=== PATIENT | female | born 1970 | race Caucasian/White ===

== ENCOUNTER 2017-08-03 11:34 | Emergency (ER) | payer BC ==
[~2017-08-03] VITALS: Ht 160 cm; Wt 63.5 kg
[2017-08-03 11:34] VITALS: BP_SYST 138
--- NOTE | 2017-08-03 11:34 | NUR ---
BROUGHT BACK TO BED #6 AND TRIAGED, REPORT GIVEN TO SHANICE
--- NOTE | 2017-08-03 11:38 | NUR ---
Dr Hooks at bedside examining patient
--- NOTE | 2017-08-03 11:38 | NUR ---
Patient to ER bed 06 to gown for evaluation. Side rails up.
--- NOTE | 2017-08-03 11:40 | NUR ---
Pt brought by self,pt presents to ER with sore throat and cough, afebrile, skin pink and warm, cap refill <3, VSS.
--- NOTE | 2017-08-03 11:59 | NUR ---
Patient given written and verbal discharge instructions and verbalizes understanding. ER MD discussed with patient the results and treatment provided. Patient in stable condition. ID arm band removed. No prescriptions given. Patient educated on pain management and to follow up with PMD. Pain Scale 0/10 . Opportunity for questions provided and answered.
[2017-08-03 12:00] VITALS: BP_SYST 136
== END 2017-08-03 12:00 | disposition home or self-care (01) ==
LOC: SED 11:34
DX: J06.9 Acute upper respiratory infection, unspecified (principal); R03.0 Elevated blood-pressure reading, without diagnosis of hypertension
CPT/HCPCS: 99281

== ENCOUNTER 2017-08-17 14:12 | Emergency (ER) | payer BC ==
[~2017-08-17] VITALS: Ht 154.9 cm; Wt 56.7 kg
[2017-08-17 14:12] VITALS: BP_SYST 150
[2017-08-17] MEDS ORDERED: IPRATROPIUM/ALBUTEROL SULFATE 3 ML AMPUL.NEB INH ONE (14:45)
[2017-08-17 15:21] LABS: BASOPHILS # (AUTO) 0.1 K/uL (0.0-0.2); BASOPHILS % (AUTO) 1.5 % (0.0-2.0); HEMATOCRIT 41.6 % (36-48); HEMOGLOBIN 13.8 g/dL (12.0-16.0); LYMPHOCYTES # (AUTO) 0.7 K/uL (1.0-5.5); LYMPHOCYTES % (AUTO) 7.8 % (20.5-51.5); MEAN CORPUSCULAR HEMOGLOBIN 29 pg (27-31); MEAN CORPUSCULAR HGB CONC 33 % (32-36); MEAN CORPUSCULAR VOLUME 87 fL (79.0-98.0); MONOCYTES # (AUTO) 0.2 K/uL (0.0-1.0); MONOCYTES % (AUTO) 1.8 % (1.7-9.3); NEUTROPHILS # (AUTO) 7.5 K/uL (1.8-7.7); NEUTROPHILS % (AUTO) 88.9 % (40.0-70.0); PLATELET COUNT (AUTO) 370 K/uL (130-430); RED BLOOD CELL COUNT(AUTO) 4.77 MIL/uL (4.2-6.2); RED CELL DISTRIBUTION WIDTH 12.5 % (9.0-15.0); WHITE BLOOD COUNT (AUTO) 8.5 K/uL (4.8-10.8)
[2017-08-17 15:36] LABS: CALCIUM 9.4 mg/dL (8.4-11.0); CREATININE 0.6 mg/dL (0.55-1.30); POTASSIUM 3.5 mmol/L (3.5-5.1)
[2017-08-17 15:41] LABS: ALBUMIN 4.2 g/dL (3.4-4.8); TOTAL BILIRUBIN 0.5 mg/dL (0.0-1.0)
[2017-08-17] MEDS ORDERED: DEXAMETHASONE SOD PHOSPHATE 10 MG/ML VIAL IM ONE (16:15)
[2017-08-17] MEDS ORDERED: HYDROcodone/ACETAMIN 5-325 MG TAB (NORCO/ VICODIN) PO ONE (16:45)
[2017-08-17 17:12] VITALS: BP_SYST 123
== END 2017-08-17 17:12 | disposition home or self-care (01) ==
LOC: SED 14:12
DX: J45.909 Unspecified asthma, uncomplicated (principal); R03.0 Elevated blood-pressure reading, without diagnosis of hypertension
CPT/HCPCS: 36415; 71045; 80053; 84484; 85025; 85379; 94640; 96372; 99285; J1100; 93005

== ENCOUNTER 2022-08-27 17:41 | Inpatient (IN) | payer BC ==
[~2022-08-27] VITALS: Ht 154.9 cm; Wt 60.8 kg
[2022-08-27 17:55] VITALS: BP_SYST 173
[2022-08-27 18:58] LABS: BASOPHILS % (AUTO) 0.3 % (0.0-2.0); EOSINOPHILS % (AUTO) 0.3 % (0.0-4.0); HEMATOCRIT 43.7 % (36-48); HEMOGLOBIN 14.8 g/dL (12.0-16.0); LYMPHOCYTES # (AUTO) 1.4 K/uL (1.0-5.5); LYMPHOCYTES % (AUTO) 18.3 % (20.5-51.5); MEAN CORPUSCULAR HEMOGLOBIN 30 pg (27-31); MEAN CORPUSCULAR HGB CONC 34 % (32-36); MEAN CORPUSCULAR VOLUME 87 fL (79.0-98.0); MONOCYTES # (AUTO) 0.3 K/uL (0.0-1.0); MONOCYTES % (AUTO) 4.4 % (1.7-9.3); NEUTROPHILS % (AUTO) 76.7 % (40.0-70.0); PLATELET COUNT (AUTO) 261 K/uL (130-430); RED CELL DISTRIBUTION WIDTH 12.9 % (9.0-15.0); WHITE BLOOD COUNT (AUTO) 7.9 K/uL (4.8-10.8)
[2022-08-27 19:14] LABS: ANION GAP 5 (5-15); CALCIUM 9.4 mg/dL (8.4-11.0); CHLORIDE 102 mmol/L (98-107); CREATININE 0.73 mg/dL (0.55-1.30); GLUCOSE 127 mg/dL (70-99); UREA NITROGEN, BLOOD 10 mg/dL (8-21)
[2022-08-27 19:24] LABS: ALANINE AMINOTRANSFERASE 43 U/L (12-78); ALBUMIN 4.5 g/dL (3.4-4.8); ASPARTATE AMINOTRANSFERASE 26 U/L (10-37); TOTAL BILIRUBIN 0.7 mg/dL (0.0-1.0)
[2022-08-27] MEDS ORDERED: MORPHINE 4 MG INJ. 4 MG/ML VIAL IVP ONE (19:30)
[2022-08-27] MEDS ORDERED: NITROGLYCERIN 1 INCH (GM) OINT. TP ONE (19:30)
[2022-08-27] MEDS ORDERED: ASPIRIN 325 MG TABLET PO ONE (19:30)
[2022-08-27 19:36] LABS: GFR AFRICAN AMERICAN 108 mL/min (>90)
[2022-08-27 22:37] VITALS: BP_SYST 151
[2022-08-28 08:36] VITALS: BP_SYST 130
[2022-08-28 11:22] VITALS: BP_SYST 154
[2022-08-28 16:38] VITALS: BP_SYST 149
[2022-08-28 20:00] VITALS: BP_SYST 141
[2022-08-29] VITALS (7 sets, daily range): BP systolic 102–143
[2022-08-29 06:42] LABS: BASOPHILS % (AUTO) 0.4 % (0.0-2.0); EOSINOPHILS # (AUTO) 0.1 K/uL (0.0-0.4); EOSINOPHILS % (AUTO) 1.5 % (0.0-4.0); HEMATOCRIT 41.2 % (36-48); HEMOGLOBIN 14.1 g/dL (12.0-16.0); LYMPHOCYTES # (AUTO) 2.1 K/uL (1.0-5.5); LYMPHOCYTES % (AUTO) 34.6 % (20.5-51.5); MEAN CORPUSCULAR HEMOGLOBIN 30 pg (27-31); MEAN CORPUSCULAR HGB CONC 34 % (32-36); MEAN CORPUSCULAR VOLUME 88 fL (79.0-98.0); MONOCYTES # (AUTO) 0.4 K/uL (0.0-1.0); MONOCYTES % (AUTO) 7.2 % (1.7-9.3); NEUTROPHILS # (AUTO) 3.4 K/uL (1.8-7.7); NEUTROPHILS % (AUTO) 56.3 % (40.0-70.0); PLATELET COUNT (AUTO) 230 K/uL (130-430); RED BLOOD CELL COUNT(AUTO) 4.69 MIL/uL (4.2-6.2)
[2022-08-29 07:03] LABS: ALBUMIN 3.7 g/dL (3.4-4.8); CALCIUM 9.2 mg/dL (8.4-11.0); CREATININE 0.84 mg/dL (0.55-1.30); TOTAL BILIRUBIN 1.2 mg/dL (0.0-1.0)
[2022-08-29] MEDS ORDERED: REGADENOSON 0.4 MG/5 ML SYRINGE IVP ONE (09:00)
== END 2022-08-29 15:45 | disposition home or self-care (01) | DRG 392 ==
LOC: SED 17:41 → STU 19:56
PROVIDERS: ADMIT Internal Medicine; ATTEND Internal Medicine
DX: K21.9 Gastro-esophageal reflux disease without esophagitis (principal); R77.8 Other specified abnormalities of plasma proteins; M54.9 Dorsalgia, unspecified; Z20.822 Contact with and (suspected) exposure to COVID-19; J30.2 Other seasonal allergic rhinitis
CPT/HCPCS: 36415; 71045; 80053; 83735; 83880; 84484; 85025; 85379; 93005; 93017; 93306; 99285; A9500; G0378; J2785

== ENCOUNTER 2022-09-02 19:10 | Emergency (ER) | payer BC ==
[~2022-09-02] VITALS: Ht 154.9 cm; Wt 61.7 kg
[2022-09-02 19:33] VITALS: BP_SYST 144
[2022-09-02] MEDS ORDERED: ASPIRIN 81 MG TAB.CHEW PO ONE (20:15)
[2022-09-02 21:07] LABS: BASOPHILS % (AUTO) 0.4 % (0.0-2.0); EOSINOPHILS % (AUTO) 0.3 % (0.0-4.0); HEMOGLOBIN 14.8 g/dL (12.0-16.0); LYMPHOCYTES # (AUTO) 1.6 K/uL (1.0-5.5); LYMPHOCYTES % (AUTO) 26.1 % (20.5-51.5); MEAN CORPUSCULAR HEMOGLOBIN 30 pg (27-31); MEAN CORPUSCULAR HGB CONC 34 % (32-36); MEAN CORPUSCULAR VOLUME 89 fL (79.0-98.0); MONOCYTES # (AUTO) 0.3 K/uL (0.0-1.0); MONOCYTES % (AUTO) 5.2 % (1.7-9.3); NEUTROPHILS # (AUTO) 4.3 K/uL (1.8-7.7); PLATELET COUNT (AUTO) 280 K/uL (130-430); RED BLOOD CELL COUNT(AUTO) 4.97 MIL/uL (4.2-6.2); WHITE BLOOD COUNT (AUTO) 6.3 K/uL (4.8-10.8)
[2022-09-02 21:12] LABS: ANION GAP 8 (5-15); CALCIUM 9.5 mg/dL (8.4-11.0); CHLORIDE 102 mmol/L (98-107); CREATININE 0.72 mg/dL (0.55-1.30); GLUCOSE 125 mg/dL (70-99); UREA NITROGEN, BLOOD 11 mg/dL (8-21)
[2022-09-02 21:16] LABS: ALANINE AMINOTRANSFERASE 41 U/L (12-78); ALBUMIN 4.5 g/dL (3.4-4.8); ASPARTATE AMINOTRANSFERASE 24 U/L (10-37); GFR AFRICAN AMERICAN 110 mL/min (>90); TOTAL BILIRUBIN 0.7 mg/dL (0.0-1.0)
[2022-09-02] MEDS ORDERED: FAMOTIDINE 20 MG TABLET PO ONE (22:30)
[2022-09-02] MEDS ORDERED: MAG-AL HYDROX/SIMETH 30 ML UDC PO ONE (22:30)
[2022-09-02] MEDS ORDERED: ASPIRIN 81 MG TAB.CHEW ONE (22:32)
[2022-09-03] MEDS ORDERED: OMEP20CA15 PO (00:04)
[2022-09-03] MEDS ORDERED: IBUP-1969 PO (00:04)
[2022-09-03] MEDS ORDERED: IBUPROFEN 600 MG TABLET PO ONE (00:15)
[2022-09-03 01:03] VITALS: BP_SYST 131
== END 2022-09-03 01:03 | disposition home or self-care (01) ==
LOC: SED 19:10
DX: R07.9 Chest pain, unspecified (principal); K21.9 Gastro-esophageal reflux disease without esophagitis; Z79.899 Other long term (current) drug therapy
CPT/HCPCS: 36415; 71045; 80053; 83880; 84484; 85025; 93005; 99285